=== PATIENT | male | born 1945 | race Caucasian/White ===

== ENCOUNTER 2016-10-21 12:35 | Emergency (ER) | payer MEDICARE ==
--- NOTE | 2016-10-28 18:56 | ER ---
ADMIT: 10/21/2016 RM/LOC: ER [facility] MR#: [id number] [facility] [id number] YURILUISMandy Bundy [address] [place] [address] Emergency Room Report SEX: M AGE: 71 : 1945 DATE: 10/21/2016 ADDENDUM: A 71-year-old white male coming in with nonspecific complaints. Kind of overall weakness. He has been out in the heat all weak. Exam is negative. CBC, chemistry, troponin, EKG, and chest x-ray, CT of the head all negative. At this time, we are going to discharge him home. I told him I did not find anything acute but that he does need followup. I do not believe that he has a doc, we will give him one for followup. CONDITION ON DISCHARGE: Good. Moe Brenner MD/ mark JOB #: [id number] CC: Moe Brenner MD, Attending Physician Garth Moreno MD, Family Physician
== END 2016-10-21 15:28 | disposition home or self-care (01) ==
LOC: ER 12:35
DX: R53.1 Weakness (principal); Z88.0 Allergy status to penicillin; Z90.49 Acquired absence of other specified parts of digestive tract; Z90.89 Acquired absence of other organs; Z79.899 Other long term (current) drug therapy